=== PATIENT | male | born 2000 | race Caucasian/White ===

== ENCOUNTER 2021-01-09 22:32 | Emergency (ER) | payer OTHER, BC ==
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
[2021-01-10 00:20] VITALS: BP 151/97
== END 2021-01-10 00:20 | disposition home or self-care (01) ==
LOC: ED 22:32
DX: S09.90XA Unspecified injury of head, initial encounter (principal); M54.2 Cervicalgia; V49.59XA Passenger injured in collision with other motor vehicles in traffic accident, initial encounter
CPT/HCPCS: 99281; 99284